=== PATIENT | male | born 1955 | race Caucasian/White ===

== ENCOUNTER 2018-03-04 08:12 | Inpatient (IN) | payer BC ==
[2018-03-04] MEDS: KETOROLAC 60 MG/2 ML INJ. IM (09:00)
[2018-03-04] MEDS: KETOROLAC 30 MG/ML INJ. IV (09:25)
[2018-03-04 10:10] LABS: BILIRUBIN,URINE NEGATIVE (NEG); CLARITY,URINE CLEAR; COLOR,URINE YELLOW; GLUCOSE,URINE NEGATIVE (NEG); NITRITE,URINE NEGATIVE (NEG); PROTEIN,URINE NEGATIVE (NEG-TRACE); UROBILINOGEN,URINE 0.2 mg/dL (0.2 mg/dL)
[2018-03-04 10:18] LABS: BACTERIA,URINE 0 /HPF (0-FEW); RBC,URINE 0 /HPF (0-2); SQUAMOUS EPITHELIAL CELL,UR OCC /LPF; WBC,URINE OCC /HPF (0-4)
[2018-03-04] MEDS: HYDROmorphone 2 MG/ML VIAL IV ×2 (10:35→13:43)
[2018-03-04] MEDS: ONDANSETRON PF 4 MG/2 ML VIAL. IV (10:36)
[2018-03-04 10:47] LABS: BASO % 0 % (0-3); EOS % 0 % (0-3); HEMATOCRIT 43.2 % (39.0-53.0); HEMOGLOBIN 14.3 g/dL (13.0-17.5); LYMPH # 0.7 x10^3/uL (1.0-4.8); LYMPH % 6 % (24-48); MEAN CORPUSCULAR HEMOGLOBIN 29 pg (25-35); MEAN CORPUSCULAR HGB CONC 33 g/dL (31-37); MEAN CORPUSCULAR VOLUME 86 fL (79-100); MONO # 0.7 x10^3/uL (0.0-1.1); MONO % 6 % (0-9); NEUT # 9.7 x10^3uL (1.8-7.7); NEUT % 87 % (31-73); PLATELET COUNT 180 x10^3/uL (140-400); RED BLOOD COUNT 5.02 x10^6/uL (4.30-5.70); RED CELL DISTRIBUTION WIDTH 13.7 % (11.5-14.5); WHITE BLOOD COUNT 11.2 x10^3/uL (4.0-11.0)
[2018-03-04 10:49] LABS: ADD MAN DIFF? YES
[2018-03-04 11:04] LABS: ANION GAP 6 (6-14); BLOOD UREA NITROGEN 18 mg/dL (8-26); BUN/CREATININE RATIO 20 (6-20); CALCIUM 8.8 mg/dL (8.5-10.1); CARBON DIOXIDE 31 mmol/L (21-32); CHLORIDE 102 mmol/L (98-107); CREATININE 0.9 mg/dL (0.7-1.3); GFR 85.2; GLUCOSE 193 mg/dL (70-99); POTASSIUM 4.9 mmol/L (3.5-5.1); SODIUM 139 mmol/L (136-145)
[2018-03-04 11:10] LABS: ALBUMIN 3.6 g/dL (3.4-5.0); ALBUMIN/GLOBULIN RATIO 1.1 (1.0-1.7); ALK PHOS 66 U/L (46-116); ALT (SGPT) 30 U/L (16-63); AST (SGOT) 31 U/L (15-37); LIPASE 66 U/L (73-393); TOTAL BILIRUBIN 0.7 mg/dL (0.2-1.0); TOTAL PROTEIN 6.8 g/dL (6.4-8.2)
[2018-03-04 11:29] LABS: INR 1.1 (0.8-1.1); PARTIAL THROMBOPLASTIN TIME 24 SEC (24-38); PROTHROMBIN TIME PATIENT 14.1 SEC (11.7-14.0)
[2018-03-04 11:37] LABS: % BANDS 7 % (0-9); % LYMPHS 5 % (24-48); % MONOS 4 % (0-10); % SEGS 84 % (35-66); PLT ESTIMATE ADEQUATE (ADEQUATE)
[2018-03-04] MEDS ORDERED: ONDANSETRON PF 4 MG/2 ML VIAL. IV (13:00)
[2018-03-04 16:04] LABS: POC GLUCOSE 146 mg/dL (70-99)
[2018-03-04 16:58] LABS: POC GLUCOSE 149 mg/dL (70-99)
[2018-03-04] MEDS: INSULIN LISPRO 300 UNITS/3 ML INSULN.PEN. SQ (17:00)
[2018-03-04] MEDS ORDERED: HYDROmorphone 2 MG/ML VIAL IV (17:00)
[2018-03-04] MEDS: MORPHINE SULFATE 4 MG/ML DISP.SYRIN. IV ×2 (17:06→20:56)
[2018-03-04 18:08] LABS: HEMATOCRIT 42.7 % (39.0-53.0); HEMOGLOBIN 14.8 g/dL (13.0-17.5); MEAN CORPUSCULAR HEMOGLOBIN 30 pg (25-35); MEAN CORPUSCULAR HGB CONC 35 g/dL (31-37); MEAN CORPUSCULAR VOLUME 86 fL (79-100); PLATELET COUNT 167 x10^3/uL (140-400); RED BLOOD COUNT 4.98 x10^6/uL (4.30-5.70); WHITE BLOOD COUNT 6.3 x10^3/uL (4.0-11.0)
[2018-03-04 20:23] LABS: POC GLUCOSE 228 mg/dL (70-99)
[2018-03-04] MEDS ORDERED: POLYETHYLENE GLYCOL 3350 17 GM PACKET. PO (21:30)
[2018-03-04] MEDS ORDERED: DOCUSATE SODIUM 100 MG CAPSULE. PO (21:30)
[2018-03-04] MEDS: tiZANidine 4 MG TABLET. PO (21:55)
[2018-03-04] MEDS: SIMVASTATIN 40 MG TABLET. PO (21:55)
[2018-03-04] MEDS: TOFACITINIB CITRATE 5 MG PO (21:56)
[2018-03-04] MEDS: INSULIN DEGLUDEC SQ (21:57)
[2018-03-04] MEDS: POLYETHYLENE GLYCOL 3350 17 GM PACKET. PO (22:00)
[2018-03-05 03:24] LABS: ADD MAN DIFF? NO
[2018-03-05 03:48] LABS: BASO % 0 % (0-3); EOS # 0.1 x10^3/uL (0.0-0.7); EOS % 2 % (0-3); HEMATOCRIT 40.4 % (39.0-53.0); LYMPH # 1.2 x10^3/uL (1.0-4.8); LYMPH % 21 % (24-48); MEAN CORPUSCULAR HEMOGLOBIN 30 pg (25-35); MEAN CORPUSCULAR HGB CONC 35 g/dL (31-37); MEAN CORPUSCULAR VOLUME 85 fL (79-100); MONO # 0.6 x10^3/uL (0.0-1.1); MONO % 10 % (0-9); NEUT # 3.9 x10^3uL (1.8-7.7); NEUT % 67 % (31-73); PLATELET COUNT 173 x10^3/uL (140-400); RED BLOOD COUNT 4.75 x10^6/uL (4.30-5.70); WHITE BLOOD COUNT 5.8 x10^3/uL (4.0-11.0)
[2018-03-05] MEDS: MORPHINE IR 15 MG TABLET PO ×2 (06:06→17:09)
[2018-03-05] MEDS: tiZANidine 4 MG TABLET. PO ×3 (06:06→21:27)
[2018-03-05 06:20] LABS: ALBUMIN 3.2 g/dL (3.4-5.0); ALK PHOS 63 U/L (46-116); ALT (SGPT) 26 U/L (16-63); ANION GAP 5 (6-14); AST (SGOT) 28 U/L (15-37); BLOOD UREA NITROGEN 18 mg/dL (8-26); BUN/CREATININE RATIO 20 (6-20); CALCIUM 8.9 mg/dL (8.5-10.1); CARBON DIOXIDE 30 mmol/L (21-32); CHLORIDE 103 mmol/L (98-107); CREATININE 0.9 mg/dL (0.7-1.3); GFR 85.2; GLUCOSE 157 mg/dL (70-99); POTASSIUM 4.5 mmol/L (3.5-5.1); SODIUM 138 mmol/L (136-145); TOTAL BILIRUBIN 0.6 mg/dL (0.2-1.0); TOTAL PROTEIN 6.3 g/dL (6.4-8.2)
[2018-03-05] MEDS ORDERED: ONDANSETRON PF 4 MG/2 ML VIAL. IV (08:00)
[2018-03-05] MEDS ORDERED: INSULIN LISPRO 300 UNITS/3 ML INSULN.PEN. SQ (08:00)
[2018-03-05] MEDS ORDERED: DEXTROSE 50% 25 GM / 50ML DISP.SYRIN. IV (08:00)
[2018-03-05 08:53] LABS: POC GLUCOSE 226 mg/dL (70-99)
[2018-03-05] MEDS: oxyCODONE/APAP 5/325 1 TAB TABLET PO ×6 (10:00→21:28)
[2018-03-05] MEDS: DOCUSATE SODIUM 100 MG CAPSULE. PO ×3 (10:01→21:00)
[2018-03-05] MEDS: MORPHINE SULFATE 4 MG/ML DISP.SYRIN. IV (10:01)
[2018-03-05] MEDS: TOFACITINIB CITRATE 5 MG PO ×2 (10:02→21:26)
[2018-03-05] MEDS: NOVOLOG INSULIN PEN SQ ×3 (10:03→17:08)
[2018-03-05] MEDS: diazePAM 5 MG TABLET PO (11:41)
[2018-03-05] MEDS: POLYETHYLENE GLYCOL 3350 17 GM PACKET. PO (11:44)
[2018-03-05 12:03] LABS: POC GLUCOSE 237 mg/dL (70-99)
[2018-03-05 16:37] LABS: POC GLUCOSE 237 mg/dL (70-99)
[2018-03-05] MEDS: diazePAM 2 MG TABLET PO (17:08)
[2018-03-05] MEDS: SIMVASTATIN 40 MG TABLET. PO (21:27)
[2018-03-05] MEDS: INSULIN DEGLUDEC SQ (21:29)
[2018-03-06] MEDS: MORPHINE IR 15 MG TABLET PO (06:37)
[2018-03-06] MEDS: DOCUSATE SODIUM 100 MG CAPSULE. PO (08:56)
[2018-03-06] MEDS: tiZANidine 4 MG TABLET. PO ×2 (08:56→12:45)
[2018-03-06] MEDS: POLYETHYLENE GLYCOL 3350 17 GM PACKET. PO (08:56)
[2018-03-06] MEDS: oxyCODONE/APAP 5/325 1 TAB TABLET PO ×2 (08:56→12:46)
[2018-03-06] MEDS: TOFACITINIB CITRATE 5 MG PO (08:57)
[2018-03-06] MEDS: NOVOLOG INSULIN PEN SQ ×2 (08:58→11:30)
== END 2018-03-06 13:00 | disposition home or self-care (01) | DRG 815 ==
LOC: ER 08:12 → 4 NORTH 11:38
DX: D73.5 Infarction of spleen (principal); S22.32XA Fracture of one rib, left side, initial encounter for closed fracture; E11.65 Type 2 diabetes mellitus with hyperglycemia; W01.0XXA Fall on same level from slipping, tripping and stumbling without subsequent striking against object, initial encounter; E78.00 Pure hypercholesterolemia, unspecified; Z79.4 Long term (current) use of insulin; Z88.5 Allergy status to narcotic agent; Y93.89 Activity, other specified; Y99.8 Other external cause status; Y92.098 Other place in other non-institutional residence as the place of occurrence of the external cause
CPT/HCPCS: 36415; 71101; 74176; 80053; 81001; 82962; 83690; 85007; 85025; 85027; 85610; 85730; 96374; 96375; 96376; 99285; 99285-25; G0238; J1170; J1815; J1885; J2270; J2405

== ENCOUNTER 2018-07-13 22:25 | Inpatient (IN) | payer BC ==
[~2018-07-13] VITALS: Ht 180.3 cm; Wt 79.9 kg
[~2018-07-13 22:25] MED LIST: INSU100C4 SQ; INSU100I30 SQ; OXYC1TAB7 PO; SIMV40TA3 PO; TIZA4TAB PO; TOFA5TAB PO; TRAM50TA PO
[2018-07-14 01:54] LABS: ALBUMIN 3.8 g/dL (3.4-5.0); CREATININE 1.1 mg/dL (0.7-1.3); DIRECT BILIRUBIN 0.1 mg/dL (0.0-0.2); GFR 67.6; POTASSIUM 4.2 mmol/L (3.5-5.1); TOTAL BILIRUBIN 0.3 mg/dL (0.2-1.0); TOTAL PROTEIN 6.8 g/dL (6.4-8.2)
[2018-07-14 01:57] LABS: HEMATOCRIT 40.7 % (39.0-53.0); HEMOGLOBIN 13.7 g/dL (13.0-17.5); RED BLOOD COUNT 4.72 x10^6/uL (4.30-5.70); WHITE BLOOD COUNT 10.7 x10^3/uL (4.0-11.0)
[2018-07-14 01:58] LABS: BASO % 0 % (0-3); EOS % 0 % (0-3); LYMPH # 0.5 x10^3/uL (1.0-4.8); LYMPH % 5 % (24-48); MEAN CORPUSCULAR HEMOGLOBIN 29 pg (25-35); MEAN CORPUSCULAR HGB CONC 34 g/dL (31-37); MEAN CORPUSCULAR VOLUME 86 fL (79-100); MONO # 0.8 x10^3/uL (0.0-1.1); MONO % 7 % (0-9); NEUT # 9.5 x10^3uL (1.8-7.7); NEUT % 88 % (31-73); PLATELET COUNT 204 x10^3/uL (140-400); RED CELL DISTRIBUTION WIDTH 14.3 % (11.5-14.5)
[2018-07-14] MEDS ORDERED: IOHEXOL 300 MG/ML 100ML VIAL. IV ONE (02:00)
[2018-07-14] MEDS ORDERED: CONTRAST GIVEN. MC PRN (02:00)
--- NOTE | 2018-07-14 02:08 | RAD ---
PQRS Compliance Statement: One or more of the following individualized dose reduction techniques were utilized for this examination: 1. Automated exposure control 2. Adjustment of the mA and/or kV according to patient size 3. Use of iterative reconstruction technique CT ABD PELV W/ IV CONTRST ONLY Clinical Indication: ABD PAIN Comparison: CT abdomen and pelvis without contrast, March 04, 2018. Technique: Helical CT imaging of the abdomen and pelvis is performed after 75 cc of Omnipaque 300 IV contrast. Oral contrast not given. Findings: Mild bilateral dependent atelectasis. Cardiac size normal. The liver, gallbladder, spleen, pancreas, adrenal glands, and abdominal aorta caliber are normal. The right kidney is normal. There is moderate left hydroureteronephrosis secondary to an 8 x 5 mm calculus just distal to the pelvic brim, image 66. There is left perinephric stranding. There is mild hypoenhancement of the left kidney in comparison to the right, probably due to the obstruction. Stomach unremarkable. There is no dilated small bowel. No colon wall thickening. The appendix is normal. Scattered stool in the colon. No abdominal adenopathy or free fluid. Urinary bladder is normal. Prostate size upper limits of normal. No pelvic free fluid. There is degenerative spondylosis of L3/L4 and L4/L5. Mild right convexity lumbar scoliosis. IMPRESSION: Moderate left obstructive uropathy secondary to an 8 x 5 mm ureteral calculus just distal to the pelvic brim. Electronically signed by: Sascha Newman MD (07/14/2018 2:05 AM) [facility]
[2018-07-14 02:10] LABS: BACTERIA,URINE 0 /HPF (0-FEW); BILIRUBIN,URINE NEGATIVE (NEG); CLARITY,URINE CLEAR; COLOR,URINE YELLOW; NITRITE,URINE NEGATIVE (NEG); PH,URINE 5.5; PROTEIN,URINE NEGATIVE (NEG-TRACE); SQUAMOUS EPITHELIAL CELL,UR FEW /LPF; UROBILINOGEN,URINE 0.2 mg/dL (0.2 mg/dL); WBC,URINE OCC /HPF (0-4)
[2018-07-14 02:11] LABS: HYALINE CASTS, URINE FEW /HPF
[2018-07-14] MEDS: IV NORMAL SALINE 1000ML BAG 1,000 ML IV SCH ×2 (02:24→15:36)
--- NOTE | 2018-07-14 02:24 | PHYS DOC ---
Past Medical History Past Medical History: Diabetes-Type II, High Cholesterol Past Surgical History: Tonsillectomy Additional Past Surgical Histo: vasectomy, colonoscopy, Alcohol Use: Occasionally Drug Use: None Adult General Chief Complaint Chief Complaint: NAUSEA/VOMITING/DIARRHA HPI HPI Patient is a 62 year old male who presents with abdominal pain. Patient had sudden onset of abdominal and left flank pain after eating dinner around 1800 last evening. The pain has persisted since that time. Pain is described to be sharp in nature. He denies prior similar symptoms. He has no history of surgeries on his abdomen. He has no nausea or vomiting. Denies urinary symptoms. Review of Systems Review of Systems Constitutional: Denies fever or chills Eyes: Denies change in visual acuity, redness, or eye pain HENT: Denies nasal congestion or sore throat Respiratory: Denies cough or shortness of breath Cardiovascular: No additional information not addressed in HPI GI: Denies abdominal pain, nausea, vomiting, bloody stools or diarrhea : Denies dysuria or hematuria Musculoskeletal: Denies back pain or joint pain Integument: Denies rash or skin lesions Neurologic: Denies headache, focal weakness or sensory changes Endocrine: Denies polyuria or polydipsia All other systems were reviewed and found to be within normal limits, except as documented in this note. Current Medications Current Medications Current Medications Medications (Trade) Dose Ordered Sig/Carissa Start Time Stop Time Status Last Admin Dose Admin Info (CONTRAST GIVEN -- Rx MONITORING) 1 each PRN DAILY PRN 07/14/18 02:00 07/16/18 01:59 Iohexol (Omnipaque 300 Mg/ml) 75 ml 1X ONCE 07/14/18 02:00 07/14/18 02:01 DC Ketorolac Tromethamine (Toradol 30mg Vial) 30 mg 1X ONCE 07/14/18 02:30 07/14/18 02:31 UNV Morphine Sulfate (Morphine Sulfate) 4 mg PRN Q2HR PRN 07/14/18 02:30 07/15/18 02:29 UNV Ondansetron HCl (Zofran) 4 mg PRN Q8HRS PRN 07/14/18 02:30 07/15/18 02:29 UNV Sodium Chloride 1,000 ml @ 75 mls/hr [id number] 07/14/18 02:16 07/15/18 02:15 UNV Tamsulosin HCl (Flomax) 0.4 mg 1X ONCE 07/14/18 02:30 07/14/18 02:31 UNV Allergies Allergies Allergies Coded Allergies Type Severity Reaction Last Updated Verified hydrocodone Allergy Intermediate itching 03/04/18 Yes Physical Exam Physical Exam Constitutional: Well developed, well nourished, no acute distress, non-toxic appearance. HENT: Normocephalic, atraumatic, bilateral external ears normal, oropharynx moist Eyes: PERRLA Neck: Normal range of motion, no tenderness Cardiovascular:Heart rate regular rhythm, no murmur Lungs & Thorax: Bilateral breath sounds clear to auscultation Abdomen: Bowel sounds normal, soft, no tenderness Skin: Warm, dry, no erythema, no rash Back: No tenderness, no CVA tenderness Neurologic: Alert and oriented X 3 Psychologic: Affect normal Current Patient Data Vital Signs Vital Signs Date Time Temp Pulse Resp B/P (MAP) Pulse Ox O2 Delivery O2 Flow Rate FiO2 07/14/18 01:00 70 140/82 (101) 97 Room Air Lab Values Laboratory Tests Test 07/13/18 23:55 White Blood Count 10.7 x10^3/uL (4.0-11.0) Red Blood Count 4.72 x10^6/uL (4.30-5.70) Hemoglobin 13.7 g/dL (13.0-17.5) Hematocrit 40.7 % (39.0-53.0) Mean Corpuscular Volume 86 fL (79-100) Mean Corpuscular Hemoglobin 29 pg (25-35) Mean Corpuscular Hemoglobin Concent 34 g/dL (31-37) Red Cell Distribution Width 14.3 % (11.5-14.5) Platelet Count 204 x10^3/uL (140-400) Neutrophils (%) (Auto) 88 % (31-73) H Lymphocytes (%) (Auto) 5 % (24-48) L Monocytes (%) (Auto) 7 % (0-9) Eosinophils (%) (Auto) 0 % (0-3) Basophils (%) (Auto) 0 % (0-3) Neutrophils # (Auto) 9.5 x10^3uL (1.8-7.7) H Lymphocytes # (Auto) 0.5 x10^3/uL (1.0-4.8) L Monocytes # (Auto) 0.8 x10^3/uL (0.0-1.1) Eosinophils # (Auto) 0.0 x10^3/uL (0.0-0.7) Basophils # (Auto) 0.0 x10^3/uL (0.0-0.2) Platelet Estimate Pending Urine Collection Type Unknown Urine Color Yellow Urine Clarity Clear Urine pH 5.5 Urine Specific [place] 1.025 Urine Protein Negative mg/dL (NEG-TRACE) Urine Glucose (UA) Negative mg/dL (NEG) Urine Ketones (Stick) 15 mg/dL (NEG) Urine Blood Small (NEG) Urine Nitrite Negative (NEG) Urine Bilirubin Negative (NEG) Urine Urobilinogen Dipstick 0.2 mg/dL (0.2 mg/dL) Urine Leukocyte Esterase Negative (NEG) Urine RBC 6-10 /HPF (0-2) Urine WBC Occ /HPF (0-4) Urine Squamous Epithelial Cells Few /LPF Urine Bacteria 0 /HPF (0-FEW) Urine Hyaline Casts Few /HPF Urine Mucus Marked /LPF Sodium Level 139 mmol/L (136-145) Potassium Level 4.2 mmol/L (3.5-5.1) Chloride Level 105 mmol/L (98-107) Carbon Dioxide Level 28 mmol/L (21-32) Anion Gap 6 (6-14) Blood Urea Nitrogen 26 mg/dL (8-26) Creatinine 1.1 mg/dL (0.7-1.3) Estimated GFR (Cockcroft-Gault) 67.6 Glucose Level 78 mg/dL (70-99) Calcium Level 9.0 mg/dL (8.5-10.1) Total Bilirubin 0.3 mg/dL (0.2-1.0) Direct Bilirubin 0.1 mg/dL (0.0-0.2) Aspartate Amino Transferase (AST) 34 U/L (15-37) Alanine Aminotransferase (ALT) 28 U/L (16-63) Alkaline Phosphatase 66 U/L (46-116) Total Protein 6.8 g/dL (6.4-8.2) Albumin 3.8 g/dL (3.4-5.0) Lipase 81 U/L (73-393) Laboratory Tests 07/13/18 23:55 Laboratory Tests 07/13/18 23:55 EKG EKG [] Radiology/Procedures Radiology/Procedures Findings: Mild bilateral dependent atelectasis. Cardiac size normal. The liver, gallbladder, spleen, pancreas, adrenal glands, and abdominal aorta caliber are normal. The right kidney is normal. There is moderate left hydroureteronephrosis secondary to an 8 x 5 mm calculus just distal to the pelvic brim, image 66. There is left perinephric stranding. There is mild hypoenhancement of the left kidney in comparison to the right, probably due to the obstruction. Stomach unremarkable. There is no dilated small bowel. No colon wall thickening. The appendix is normal. Scattered stool in the colon. No abdominal adenopathy or free fluid. Urinary bladder is normal. Prostate size upper limits of normal. No pelvic free fluid. There is degenerative spondylosis of L3/L4 and L4/L5. Mild right convexity lumbar scoliosis. IMPRESSION: Moderate left obstructive uropathy secondary to an 8 x 5 mm ureteral calculus just distal to the pelvic brim. Course & Med Decision Making Course & Med Decision Making Pertinent Labs and Imaging studies reviewed. (See chart for details) Patient was evaluated in the emergency department for sudden onset of abdominal pain. Patient was seen during a downtime procedure so some of his documentation may be located in other places. His findings were positive for a large 5 x 8 mm stone at the left pelvic brim. His pain was well-controlled in the emergency department. Given the size of his stone, the patient was admitted to the hospitalist service and consultation was requested from the urologist. Patient was agreeable to the plan of care. Dragon Disclaimer Dragon Disclaimer This electronic medical record was generated, in whole or in part, using a voice recognition dictation system. Departure Departure Impression: Primary Impression: Kidney stone Disposition: ADMITTED INPATIENT Condition: DIOMEDES PRITCHETT DO Jul 14, 2018 02:24
[2018-07-14] MEDS ORDERED: TAMSULOSIN 0.4 MG CAP.ER.24H. PO ONE (02:30)
[2018-07-14] MEDS ORDERED: ONDANSETRON PF 4 MG/2 ML VIAL. IV PRN ×2 (02:30→13:15)
[2018-07-14] MEDS ORDERED: MORPHINE SULFATE 4 MG/ML VIAL. IV PRN (02:30)
[2018-07-14] MEDS ORDERED: KETOROLAC 30 MG/ML VIAL. IV ONE (02:30)
[2018-07-14 02:49] LABS: % BANDS 2 % (0-9); % LYMPHS 3 % (24-48); % MONOS 4 % (0-10); % SEGS 91 % (35-66); PLT ESTIMATE ADEQUATE (ADEQUATE)
[2018-07-14 04:45] VITALS: BP 132/73
[2018-07-14 07:00] VITALS: BP 111/68
--- NOTE | 2018-07-14 08:36 | PDOC2 ---
CANDELARIA BAPTISTE Jose Alfredo SOA INTEGRATION DEVELOPER 07/14/18 0836: UROLOGY CONSULT Date of Consult Date of Consult DATE: 07/14/18 TIME: 08:32 Reason for Consult Reason for Consult: Left kidney stone with hydronephrosis Identification/Chief Complaint Chief Complaint Left kidney stone with hydronephrosis Source Source: Caregiver, Chart review, Patient History of Present Illness Reason for Visit: 62 year old male with a history of type 1 diabetes and RA presented to [facility] ER early this morning with extreme left flank pain.He did have a rib and spleen injury from a fall early in March of this year, so at first he thought that is what it was. However, the pain intensified and started to feel different and so he presented to the ER. A CT scan was done and it was discovered that he had a moderate left obstructive uropathy secondary to an 8 by 5 mm ureteral calculus just distal to the pelvic brim. This is the first time he has ever had a kidney stone, and to his knowledge, nothing is wrong with his kidneys. He also denies dysuria, hematuria, or history of prostate problems, bladder problems or cancer to either organ. Despite having DM and RA, he reports being very "healthy" overall. Currently is pain is 1/10, which he attributes to medication. He is agreeable to surgery if necessary but would like to go home after the procedure if possible. Past Medical History Cardiovascular: No pertinent hx Pulmonary: No pertinent hx Renal/: No pertinent hx Past Surgical History Past Surgical History: No pertinent history Family History Family History: No Significant Current Problem List Problems: (1) Kidney stone Current Medications Current Medications Current Medications Info (CONTRAST GIVEN -- Rx MONITORING) 1 each PRN DAILY PRN MC SEE COMMENTS; Start 07/14/18 at 02:00; Stop 07/16/18 at 01:59 Iohexol (Omnipaque 300 Mg/ml) 75 ml 1X ONCE IV Last administered on 07/14/18at 01:15; Start 07/14/18 at 02:00; Stop 07/14/18 at 02:01; Status DC Ketorolac Tromethamine (Toradol 30mg Vial) 30 mg 1X ONCE IV Last administered on 07/14/18at 02:26; Start 07/14/18 at 02:30; Stop 07/14/18 at 02:32; Status DC Morphine Sulfate (Morphine Sulfate) 4 mg PRN Q2HR PRN IV PAIN; Start 07/14/18 at 02:30; Stop 07/15/18 at 02:29 Ondansetron HCl (Zofran) 4 mg PRN Q8HRS PRN IV NAUSEA/VOMITING; Start 07/14/18 at 02:30; Stop 07/15/18 at 02:29 Sodium Chloride 1,000 ml @ 75 mls/hr [id number] IV Last administered on at 02:24; Start 07/14/18 at 02:16; Stop 07/15/18 at 02:15 Tamsulosin HCl (Flomax) 0.4 mg 1X ONCE PO Last administered on 07/14/18at 02:27 ; Start 07/14/18 at 02:30; Stop 07/14/18 at 02:32; Status DC Allergies Allergies: Coded Allergies: hydrocodone (Verified Allergy, Intermediate, itching, 03/04/18) ROS Review Of Systems: CONSTITUTIONAL: No fever or chills EYES: No recent changes SKIN: No rash or itching CARDIOVASCULAR: No chest pain, syncope, palpitations, or edema RESPIRATORY: No SOB or cough GASTROINTESTINAL: No nausea, vomiting or abdominal pain NEUROLOGICAL: No headaches or weakness ENDOCRINE: No cold or heat intolerance GENITOURINARY: No urgency or frequency of urination MUSCULOSKELETAL: No back pain or joint pain; had flank pain on the left side, ok on the right LYMPHATICS: No enlarged lymph nodes PSYCHIATRIC: No anxiety or depression Physical Exam Physical Exam: General: Pleasant, no acute distress, well groomed Eyes: conjunctiva anicteric, eyes full range of motion ENT: moist oral mucosa, normal dentition Neck: Trachea midline, no masses Respiratory: unlabored breathing, not using accessory muscles Abdomen: nontender, nondistended, no hepatosplenomegaly, no masses Skin: no rashes or skin lesions on visualized skin Psych: normal mood, affect. Alert and oriented x 3. Vitals VITALS Vital Signs Date Time Temp Pulse Resp B/P (MAP) Pulse Ox O2 Delivery O2 Flow Rate FiO2 07/14/18 07:00 98.1 81 16 111/68 (82) 93 Room Air 98.1 Labs Labs Laboratory Tests Test 07/13/18 23:55 07/14/18 03:41 07/14/18 05:43 07/14/18 07:55 White Blood Count 10.7 x10^3/uL (4.0-11.0) Red Blood Count 4.72 x10^6/uL (4.30-5.70) Hemoglobin 13.7 g/dL (13.0-17.5) Hematocrit 40.7 % (39.0-53.0) Mean Corpuscular Volume 86 fL (79-100) Mean Corpuscular Hemoglobin 29 pg (25-35) Mean Corpuscular Hemoglobin Concent 34 g/dL (31-37) Red Cell Distribution Width 14.3 % (11.5-14.5) Platelet Count 204 x10^3/uL (140-400) Neutrophils (%) (Auto) 88 % (31-73) Lymphocytes (%) (Auto) 5 % (24-48) Monocytes (%) (Auto) 7 % (0-9) Eosinophils (%) (Auto) 0 % (0-3) Basophils (%) (Auto) 0 % (0-3) Neutrophils # (Auto) 9.5 x10^3uL (1.8-7.7) Lymphocytes # (Auto) 0.5 x10^3/uL (1.0-4.8) Monocytes # (Auto) 0.8 x10^3/uL (0.0-1.1) Eosinophils # (Auto) 0.0 x10^3/uL (0.0-0.7) Basophils # (Auto) 0.0 x10^3/uL (0.0-0.2) Segmented Neutrophils % 91 % (35-66) Band Neutrophils % 2 % (0-9) Lymphocytes % 3 % (24-48) Monocytes % 4 % (0-10) Platelet Estimate Adequate (ADEQUATE) Urine Collection Type Unknown Urine Color Yellow Urine Clarity Clear Urine pH 5.5 Urine Specific [place] 1.025 Urine Protein Negative mg/dL (NEG-TRACE) Urine Glucose (UA) Negative mg/dL (NEG) Urine Ketones (Stick) 15 mg/dL (NEG) Urine Blood Small (NEG) Urine Nitrite Negative (NEG) Urine Bilirubin Negative (NEG) Urine Urobilinogen Dipstick 0.2 mg/dL (0.2 mg/dL) Urine Leukocyte Esterase Negative (NEG) Urine RBC 6-10 /HPF (0-2) Urine WBC Occ /HPF (0-4) Urine Squamous Epithelial Cells Few /LPF Urine Bacteria 0 /HPF (0-FEW) Urine Hyaline Casts Few /HPF Urine Mucus Marked /LPF Sodium Level 139 mmol/L (136-145) Potassium Level 4.2 mmol/L (3.5-5.1) Chloride Level 105 mmol/L (98-107) Carbon Dioxide Level 28 mmol/L (21-32) Anion Gap 6 (6-14) Blood Urea Nitrogen 26 mg/dL (8-26) Creatinine 1.1 mg/dL (0.7-1.3) Estimated GFR (Cockcroft-Gault) 67.6 Glucose Level 78 mg/dL (70-99) Calcium Level 9.0 mg/dL (8.5-10.1) Total Bilirubin 0.3 mg/dL (0.2-1.0) Direct Bilirubin 0.1 mg/dL (0.0-0.2) Aspartate Amino Transf (AST/SGOT) 34 U/L (15-37) Alanine Aminotransferase (ALT/SGPT) 28 U/L (16-63) Alkaline Phosphatase 66 U/L (46-116) Total Protein 6.8 g/dL (6.4-8.2) Albumin 3.8 g/dL (3.4-5.0) Lipase 81 U/L (73-393) Glucose (Fingerstick) 110 mg/dL (70-99) 121 mg/dL (70-99) 116 mg/dL (70-99) Laboratory Tests Test 07/13/18 23:55 07/14/18 03:41 07/14/18 05:43 07/14/18 07:55 White Blood Count 10.7 x10^3/uL (4.0-11.0) Red Blood Count 4.72 x10^6/uL (4.30-5.70) Hemoglobin 13.7 g/dL (13.0-17.5) Hematocrit 40.7 % (39.0-53.0) Mean Corpuscular Volume 86 fL (79-100) Mean Corpuscular Hemoglobin 29 pg (25-35) Mean Corpuscular Hemoglobin Concent 34 g/dL (31-37) Red Cell Distribution Width 14.3 % (11.5-14.5) Platelet Count 204 x10^3/uL (140-400) Neutrophils (%) (Auto) 88 % (31-73) Lymphocytes (%) (Auto) 5 % (24-48) Monocytes (%) (Auto) 7 % (0-9) Eosinophils (%) (Auto) 0 % (0-3) Basophils (%) (Auto) 0 % (0-3) Neutrophils # (Auto) 9.5 x10^3uL (1.8-7.7) Lymphocytes # (Auto) 0.5 x10^3/uL (1.0-4.8) Monocytes # (Auto) 0.8 x10^3/uL (0.0-1.1) Eosinophils # (Auto) 0.0 x10^3/uL (0.0-0.7) Basophils # (Auto) 0.0 x10^3/uL (0.0-0.2) Segmented Neutrophils % 91 % (35-66) Band Neutrophils % 2 % (0-9) Lymphocytes % 3 % (24-48) Monocytes % 4 % (0-10) Platelet Estimate Adequate (ADEQUATE) Urine Collection Type Unknown Urine Color Yellow Urine Clarity Clear Urine pH 5.5 Urine Specific [place] 1.025 Urine Protein Negative mg/dL (NEG-TRACE) Urine Glucose (UA) Negative mg/dL (NEG) Urine Ketones (Stick) 15 mg/dL (NEG) Urine Blood Small (NEG) Urine Nitrite Negative (NEG) Urine Bilirubin Negative (NEG) Urine Urobilinogen Dipstick 0.2 mg/dL (0.2 mg/dL) Urine Leukocyte Esterase Negative (NEG) Urine RBC 6-10 /HPF (0-2) Urine WBC Occ /HPF (0-4) Urine Squamous Epithelial Cells Few /LPF Urine Bacteria 0 /HPF (0-FEW) Urine Hyaline Casts Few /HPF Urine Mucus Marked /LPF Sodium Level 139 mmol/L (136-145) Potassium Level 4.2 mmol/L (3.5-5.1) Chloride Level 105 mmol/L (98-107) Carbon Dioxide Level 28 mmol/L (21-32) Anion Gap 6 (6-14) Blood Urea Nitrogen 26 mg/dL (8-26) Creatinine 1.1 mg/dL (0.7-1.3) Estimated GFR (Cockcroft-Gault) 67.6 Glucose Level 78 mg/dL (70-99) Calcium Level 9.0 mg/dL (8.5-10.1) Total Bilirubin 0.3 mg/dL (0.2-1.0) Direct Bilirubin 0.1 mg/dL (0.0-0.2) Aspartate Amino Transf (AST/SGOT) 34 U/L (15-37) Alanine Aminotransferase (ALT/SGPT) 28 U/L (16-63) Alkaline Phosphatase 66 U/L (46-116) Total Protein 6.8 g/dL (6.4-8.2) Albumin 3.8 g/dL (3.4-5.0) Lipase 81 U/L (73-393) Glucose (Fingerstick) 110 mg/dL (70-99) 121 mg/dL (70-99) 116 mg/dL (70-99) Images Images CT ABD PELVIS 07/14/18 IMPRESSION: Moderate left obstructive uropathy secondary to an 8 x 5 mm ureteral calculus just distal to the pelvic brim. Assessment/Plan Assessment/Plan We will bring patient back for cystoscopy/ureteral stent placement and possible holmium laser with Dr. Lindo of [facility] [place]. Risks and benefits of procedure explained to patient; he verbalizes understanding. All questions answered. Pt given 's card. OR called and surgery arranged for this afternoon. Patient to remain NPO today until after procedure. 1 gram ANCEF at 1300 today for pre-opp. Discussed case with Dr. Lindo, surgeon, along with patient's desire to go home today after surgery if possible. AJIT LINDO MD 07/14/18 1323: UROLOGY CONSULT Assessment/Plan Assessment/Plan 62 yo male who presents with renal colic 2/2 an 8x5 mm distal left ureteral stone. Negative UA. No leukocytosis. Cr WNL. Afebrile. Reviewed treatment options including cystoscopy with LEFT: retrograde pyelogram, ureteroscopy, laser lithotripsy and ureteral stent placement. Risks and SEs reviewed. Consenting to the procedure. Should be able to d/c following if comfortable and f/u with me in the office in 3 weeks to review stone analysis and prevention. CANDELARIA BAPTISTE APRN Jul 14, 2018 08:36 AJIT LINDO MD Jul 14, 2018 13:23
[2018-07-14 10:31] VITALS: BP 95/59
--- NOTE | 2018-07-14 12:34 | HP ---
ADMIT DATE: 07/14/2018 CHIEF COMPLAINT: Flank pain. HISTORY OF PRESENT ILLNESS: The patient is a pleasant middle-aged male, who presented to the ER with flank pain. He rates it a 9/10. He has associated nausea. It has been occurring for several days. He took home meds, but that did not work. We did imaging in the ER. He has got an 8 x 5 mm kidney stone. The patient is being admitted. We are going to consult Dr. Dotson. PAST MEDICAL HISTORY: Vasectomy, colonoscopy, tonsillectomy, diabetes, hypertension and hyperlipidemia. ALLERGIES: HYDROCODONE. FAMILY HISTORY: Kidney stones. SOCIAL HISTORY: He drinks socially. No drugs or smoking. He is retired. MEDICATIONS: Reviewed. Please refer to the MRAD. REVIEW OF SYSTEMS: GENERAL: No history of weight change, weakness or fevers. SKIN: No bruising, hair changes or rashes. EYES: No blurred, double or loss of vision. NOSE AND THROAT: No history of nosebleeds, hoarseness or sore throat. HEART: No history of palpitations, chest pain or shortness of breath on exertion. LUNGS: Denies cough, hemoptysis, wheezing or shortness of breath. GASTROINTESTINAL: Denies changes in appetite, nausea, vomiting, diarrhea or constipation. He complains of flank pain. GENITOURINARY: No history of frequency, urgency, hesitancy or nocturia. NEUROLOGIC: Denies history of numbness, tingling, tremor or weakness. PSYCHIATRIC: No history of panic, anxiety or depression. ENDOCRINE: No history of heat or cold intolerance, polyuria or polydipsia. EXTREMITIES: Denies muscle weakness, joint pain, pain on walking or stiffness. PHYSICAL EXAMINATION: VITAL SIGNS: Temperature afebrile, pulse 78, respirations 18, blood pressure 132/73 and O2 sat 94%. GENERAL: He is alert, cooperative. HEART: Normal S1, S2. LUNGS: Clear. ABDOMEN: Soft, tender in the left flank. EXTREMITIES: Trace edema. SKIN: No rashes. ENDOCRINE: No thyromegaly. LYMPHATICS: No cervical nodes. HEMATOPOIETIC: No bruising. LABORATORY DATA: Hematology is normal. Electrolytes are normal. Urinalysis shows small amount of blood. Abdominal CT shows an 8 x 5 mm stone. ASSESSMENT AND PLAN: Kidney stone. The patient is being admitted. We will give him IV fluids, p.r.n. Zofran and p.r.n. narcotics. Consult Genitourinary Medicine. The patient is scheduled to go for cystoscopy, I believe, today. We will continue his home meds, p.r.n. ice chips. NIAL Ale ENG DO DR: MAMADOU/noam JOB#: [id number] / [id number]
[2018-07-14] MEDS ORDERED: PROCHLORPERAZINE 10 MG/2 ML VIAL. IV PRN (13:15)
[2018-07-14] MEDS ORDERED: fentaNYL PF VIAL 100 MCG/2 ML VIAL IV PRN ×2 (13:15)
[2018-07-14] MEDS ORDERED: LIDOCAINE 1% PF 2 ML VIAL. ID PRN (13:15)
[2018-07-14] MEDS ORDERED: ceFAZolin 1GM IVPB FOR OMNI 1 GM/50 ML BAG IV ONE (13:21)
[2018-07-14] MEDS: IV RINGERS,LACTATED 1000ML 1,000 ML IV SCH ×2 (13:29→16:47)
[2018-07-14] MEDS ORDERED: IOHEXOL 300 MG/ML 100ML VIAL. ONE (13:51)
[2018-07-14] MEDS ORDERED: LIDOCAINE 2% JELLY 6ML IN APPLICATOR. ONE (13:51)
[2018-07-14] MEDS ORDERED: PROPOFOL 20 ML IV ONE (14:42)
[2018-07-14] MEDS ORDERED: DEXAMETHASONE SOD PHOS 20 MG/5 ML VIAL. ONE (14:42)
[2018-07-14] MEDS ORDERED: SEVOFLURANE 31 TO 60 MINUTES. IH ONE (14:42)
[2018-07-14] MEDS ORDERED: ONDANSETRON PF 4 MG/2 ML VIAL. ONE (14:42)
[2018-07-14] MEDS ORDERED: KETOROLAC 30 MG/ML INJ FOR OR. INJ ONE (15:08)
[2018-07-14] MEDS ORDERED: fentaNYL PF VIAL 100 MCG/2 ML VIAL ONE (15:35)
--- NOTE | 2018-07-14 16:09 | PDOC ---
BRIEF OPERATIVE NOTE Pre-Op Diagnosis Left ureteral stone Post-Op Diagnosis same Procedure Performed cystoscopy, LEFT: ureteroscopy, laser lithotripsy, ureteral stent placement Surgeon Ajit Lindo Arch Cushion Skiving Machine Operator None Anesthesia Type: General Blood Loss < 5 cc Specimens Obtained Ureteral stone Findings As dictated Complications None Operative Note Dictation # [id number] AJIT LINDO MD Jul 14, 2018 16:08
--- NOTE | 2018-07-14 16:11 | DISCH ---
DISCHARGE INSTRUCTIONS Condition on Discharge Condition on Discharge: Stable Activity After Discharge Activity Instructions for Disc: Activity as tolerated Driving Instructions after Dis: Other, see below (Do not drive if taking narcotic pain medications ) Diet after Discharge Diet after Discharge: Regular Wound Incision Care Wound/Incision Care: No wound care needed Contacting the DRKerwin after DC Call your doctor for: Fevers, pains, nausea/vomiting, bleeding, trouble urinating Follow-Up Follow up with: With Dr. Lindo in 2 weeks for ureteral stent removal. Treatment/Equipment after DC Adaptive Equipment Issued: None AJIT LINDO MD Jul 14, 2018 16:11
[2018-07-14 17:33] VITALS: BP 131/72
--- NOTE | 2018-07-14 18:13 | OP ---
DATE OF SURGERY: 07/14/2018 PREOPERATIVE DIAGNOSIS: Obstructing distal left ureteral stone. POSTOPERATIVE DIAGNOSIS: Obstructing distal left ureteral stone. PROCEDURE PERFORMED: Cystourethroscopy, left ureteroscopy, laser lithotripsy and 6-Albanian x 28-cm double-J ureteral stent placement. ANESTHESIA: General. COMPLICATIONS: None. ESTIMATED BLOOD LOSS: Less than 5 mL. INDICATIONS FOR PROCEDURE: The patient is a 62-year-old male who presented with renal colic secondary to an 8 x 5 obstructing distal left ureteral stone. He was counseled regarding treatment options and elected for the above-mentioned procedures. DESCRIPTION OF PROCEDURE: The patient was met in the preoperative holding area where his procedure, risks, benefits and alternatives were reviewed in detail. Informed consent was obtained. He was brought back to the operating room and placed supine on the operating table. A timeout was called, identifying the correct patient, procedure, preoperative antibiotics and left side in laterality. All members of the surgical team were in agreement. General anesthesia was induced and he was repositioned into dorsal lithotomy and prepped and draped in a sterile fashion. A 21-Albanian rigid cystoscope was placed atraumatically through his urethra into his bladder. No abnormalities were noted within the anterior urethra. His prostate was 2-3 cm in length bilobar with some [id number] hyperplasia. Complete cystoscopy was performed with a 30-degree lens, did not identify any mucosal lesions, stones or debris. His ureteral orifices were orthotopic on the trigone. His left ureteral orifice was cannulated with a sensor wire. This was advanced up to the renal pelvis under fluoroscopy. The bladder was emptied and the scope was removed. Alongside the wire, a semirigid ureteroscope was used to cannulate the distal ureter; however, the ureteral orifice was too tight, so this was removed. Over the wire, the inner obturator of a 12/14 Albanian ureteral access sheath was placed in the distal ureter and allowed to dilate for 30 seconds. This was removed and then the scope easily traversed the distal ureter and up to the level of the stone in question, this was very impacted. We used a 272 micron holmium laser fiber to fragment the stone. Larger pieces were basketed out and sent to pathology, labeled left ureteral stone. We then performed ureteroscopy all the way up to the proximal ureter. On looking the scope out, we did not identify any residual stone fragments or trauma within the ureter. The rigid cystoscope was replaced and any stone fragments were evacuated. The bladder was also reinspected, no trauma was noted. The bladder was emptied and over the wire using direct vision, a 6-Albanian x 28 cm double-J ureteral stent without a string was placed. Good proximal positioning was noted on fluoroscopy. Distal curl was noted within the bladder. The scope was then removed under direct vision. The patient was then awoken and transferred to the PACU in stable condition with plans for ureteral stent removal in approximately 2 weeks in the office. AJIT LINDO MD DR: AKIKO/noam JOB#: [id number] / [id number]
== END 2018-07-14 18:10 | disposition home or self-care (01) | DRG 669 ==
LOC: ER 22:25 → 5 NORTH 07-14 02:20
PROVIDERS: ADMIT Internal Medicine; ATTEND Internal Medicine
PROC: 0T778DZ Dilation of Left Ureter with Intraluminal Device, Via Natural or Artificial Opening Endoscopic (ICD-10-PCS; 2018-07-14)
PROC: BT1F1ZZ Fluoroscopy of Left Kidney, Ureter and Bladder using Low Osmolar Contrast (ICD-10-PCS; 2018-07-14)
PROC: 0TC78ZZ Extirpation of Matter from Left Ureter, Via Natural or Artificial Opening Endoscopic (ICD-10-PCS; principal; 2018-07-14 15:30)
DX: N13.2 Hydronephrosis with renal and ureteral calculous obstruction (principal); E78.00 Pure hypercholesterolemia, unspecified; I10 Essential (primary) hypertension; E78.5 Hyperlipidemia, unspecified; E11.9 Type 2 diabetes mellitus without complications; Z79.899 Other long term (current) drug therapy; Z88.5 Allergy status to narcotic agent
CPT/HCPCS: 36415; 74177; 76000; 80048; 80076; 81001; 82962; 83690; 85007; 85025; 96361; 96374; C1769; C2617; J0690; J1100; J1885; J2405; J2704; J3010; J7030; J7120; Q9967; 99285-25

== ENCOUNTER → 2019-09-16 | Outpatient (CLI) | payer BC ==
[~2019-09-16] MED LIST changes: -TIZA4TAB PO; +TIZA4TAB2 PO
--- NOTE | 2019-09-16 15:24 | RAD ---
KUB History: Ureteral calculus Technique: Supine view the abdomen. Comparison: CT July 14, 2018. Findings: No evidence of calcification within the region of the previously seen left distal ureteral calculus. No pathologic calcification overlying the renal fossa. Nonobstructive bowel gas pattern. Curvature lumbar spine. Multilevel lumbar spondylosis. Impression: 1. No radiographic evidence of calcification within the region of the previously seen distal left ureteral calculus. Electronically signed by: Devaughn Francis DO (09/16/2019 3:21 PM) [facility]
== END | disposition home or self-care (01) ==
LOC: RAD 09:08
PROVIDERS: ATTEND Urology
DX: M47.816 Spondylosis without myelopathy or radiculopathy, lumbar region (principal); N20.2 Calculus of kidney with calculus of ureter
CPT/HCPCS: 74018